=== PATIENT | female | born 2000 | race Two or more races ===

== ENCOUNTER → 2025-05-26 | Outpatient (CLI) | payer OTHER ==
[2025-05-26 13:20] LABS: PLATELET COUNT, AUTOMATED 338 10^3/uL (150-450)
[2025-05-26 13:50] LABS: HIV 1&2 SCREEN NEGATIVE (NEGATIVE)
[2025-05-26 13:53] LABS: Trichomonas vaginalis (AMP) NOT DETECTED (NEGATIVE)
[2025-05-26 13:59] LABS: HEPATITIS C VIRUS ABY INDEX 0.02 INDEX (<0.8)
[2025-05-26 14:18] LABS: GC DNA AMPLIFICATION NEGATIVE (NEGATIVE)
== END ==
LOC: M PLALAB 09:34
PROVIDERS: ATTEND Nurse Practitioner Family
DX: Z34.01 Encounter for supervision of normal first pregnancy, first trimester (principal)

== ENCOUNTER → 2025-05-26 | Outpatient (REF) | payer OTHER | LOC: M PLALAB 09:11 | PROVIDERS: ATTEND Nurse Practitioner Family | DX: Z53.9 Procedure and treatment not carried out, unspecified reason (principal) ==